=== PATIENT | male | born 1965 | race Caucasian/White ===

== ENCOUNTER 2024-11-12 10:59 | Observation (INO) | payer BC, SELFPAY ==
[2024-11-12] VITALS (13 sets, daily range): BP systolic 99–152; BP diastolic 72–109; BMI 32.8
[2024-11-12 01:32] LABS: Hematocrit 46.2 % (39.0-52.0); Hemoglobin 16.1 g/dL (13.0-18.0); Mean Corp Hgb Conc. 34.8 g/dL (33.0-37.0); Mean Corpuscular Volume 87.2 fL (80.0-94.0); Nucleated Red Blood Cells % 0 % (-); Platelet Count 253 10^3/uL (130-400); Red Cell Dist. Width 13.0 % (11.5-14.5)
[2024-11-12 02:05] LABS: Troponin I < 0.012 ng/ml
[2024-11-12 02:12] LABS: ALT (SGPT) 18 U/L (0-50); AST (SGOT) 26 U/L (17-59); Albumin 4.2 g/dl (3.5-5.0); Alkaline Phosphatase 95 U/L (38-126); Blood Urea Nitrogen 6 mg/dl (9-20); Calcium 9.3 mg/dl (8.4-10.2); Carbon Dioxide 24 mmol/L (22-30); Chloride 106 mmol/L (98-107); Estimated Creatinine Clearance > 125 ml/min; Glucose 102 mg/dl (70-99); Potassium 4.1 mmol/L (3.5-5.1); Sodium 137 mmol/L (135-145); Total Protein 6.8 g/dl (6.3-8.2); eGFR > 60.00
--- NOTE | 2024-11-12 02:43 | ED.GENMED ---
History of Present Illness
<ETTA Hanson - Last Filed: 11/12/24 17:48>
General
Chief Complaint: Chest Pain
Source: patient
Exam Limitations: none
Time Seen by Provider: 11/12/24 01:07
Nursing documentation reviewed up to this point in time: agreed with
History of Present Illness
History of Present Illness:
Patient is a 59-year-old male with past medical history of cardiac stent 2018 [facility], renal cancer with partial nephrectomy, A-fib years ago no longer on blood thinners hypertension high cholesterol presents to the ER for evaluation.
Patient reports he has been short of breath for the past several days. Today he he has had intermittent chest pains. He is on aspirin no other blood thinners. He complains of bilateral lower extremity swelling worse on the left. No prior
history of DVT PE. 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 He does report that he believes he was told he still has blockages. He currently is asymptomatic.
Past History
<ETTA Hanson - Last Filed: 11/12/24 17:48>
Past History
ED Past Medical History: CAD and HTN
ED Past Surgical History: Cardiac (stent) and Orthopedic
Social History
Tobacco: Non-smoker
Personal:
Living: with family
Employment: Employed
Phy Exam
<ETTA Hanson - Last Filed: 11/12/24 17:48>
General Physical Exam
General Presentation: no apparent distress
General age: appears stated age
General Skin: warm and dry
General Habitus: normal
General Mental: alert
Cardiovascular Exam
Cardiovascular Exam: regular rate/rhythm, no murmur and normal peripheral pulses
Pulmonary Exam
Pulmonary Exam: lungs clear and no respiratory distress
Neurological Exam
Neurological Exam: alert and oriented x3
Musculoskeletal Exam
Musculoskeletal Exam: full ROM and other (Mild swelling bilaterally left greater than right )
Skin Exam
Skin Exam: normal color and warm/dry
Psychiatric Exam
Psychiatric Exam: normal mood/affect
Scores
<ETTA Hanson - Last Filed: 11/12/24 17:48>
Heart Score for Chest Pain Patients
STEMI patient?: Not applicable
Course
<ETTA Hanson - Last Filed: 11/12/24 17:48>
Orders/Labs/Results
Orders:
Orders
11/12/24 00:37
ECG [Electrocardiogram (*1)] Urgent
Reason for Study: Chest Pain
EKG- Treatment ONCE
11/12/24 01:17
Complete Blood Count/With Diff Urgent
Comprehensive Metabolic Panel Urgent
NT-proBNP Urgent
Comment: ADD ON
Troponin I Urgent
11/12/24 02:54
Add On- LAB Urgent
Tests Added?: cardiac bnp
Chest [CR Chest - 2 Views ] Urgent
Comment:
Reason For Exam: sob
Venous Doppler Lwr Ext Bilat [US Periph Venous LOWER Ext Yan] Urgent
Comment:
Reason For Exam: swelling
11/12/24 02:55
EKG- Treatment ONCE
11/12/24 04:00
Electrocardiogram (*1) Urgent
Reason for Study: Chest Pain
11/12/24 04:20
DDimer [D-Dimer] Urgent
PTT Urgent
Comment: ADD ON
Prothrombin Time Urgent
Troponin I Urgent
11/12/24 05:24
CT Chest PE Study Urgent
Comment:
Reason For Exam: cp, elev ddimer
11/12/24 Breakfast
Cholesterol Lowering
At Your Request: Full Participation
Cholesterol Lowering: Sodium, 2 Gram
11/12/24 07:31
Heparin 7,800 units IV NOW STA
11/12/24 07:45
Heparin 38365 Units/250 ml 25,000 units in 250 ml IV PER PROTOCOL
Weight to be used for heparin protocol in kilograms (kg):: 97.8
Protocol:: DVT/PE
PTT Goal Range to be used:: PTT 73 to 111 seconds
Order type:: Initial
INITIAL Infusion Dose (UNITS/KG/hr) & then follow protocol:: 18 units/kg/hr
Infusion Dose in UNITS/hr & then follow protocol (UNITS/hr):: 1,800
INFUSION RATE in mL/hr & then follow protocol (mL/hr):: 18
For DVT/PE algorithm, re-bolus for low PTT?: Yes
PTT less than or equal to 64 seconds:: Re-bolus 80 units/kg (max 10,000units). Increase by 400 units/hr
(+ 4mL/hr)
PTT 64.1 to 72.9 seconds:: Re-bolus 40 units/kg (max 5,000 units). Increase by 200 units/hr
(+ 2mL/hr)
PTT 73 to 111 seconds:: Target Range. No change in rate.
PTT 111.1 to 130.9 seconds:: Decrease rate by 200 units/hr (- 2 mL/hr)
PTT 131 to 199.9 seconds:: HOLD for 1 hr. Then decrease by 300 units/hr (- 3mL/hr)
PTT greater than or equal to 200 seconds:: HOLD for 2 hrs & Notify Provider. Then decrease by 400 units/hr
(- 4mL/hr)
Lab follow-up:: Each change, PTT q6h until 2 consecutive are therapeutic. Then
PTT daily.
11/12/24 07:48
Add On- LAB Urgent
Tests Added?: PT INR / PTT
11/12/24 08:41
Heparin 44654 Units/250 ml 25,000 units in 250 ml .ROUTE .STK-MED
11/12/24 08:43
Heparin 7,800 units IV PRN PRN
11/12/24 08:44
Heparin 3,900 units IV PRN PRN
11/12/24 10:[address] Non Medication Order As Directed
Physician Order: NOTIFY MD WHEN MED REC DONE
Above order entered?: Yes
11/12/24 10:49
Admit/Transfer Patient As Directed
Co-Sign Provider:
Level of Care: Observation services
Assign to:: Telemetry
Physician / Group: fabiola melton
Diagnosis: Acute PE
Reason for Telemetry: Arrhythmia
Date to Stop Telemetry: 11/15/24
Time to Stop Telemetry: 11:00
PRN Pain Medication Management As Directed
May give lesser potent ordered pain med per pt: Yes
preference::
Protocol:: Medication orders for pain may be administered in a
manner that supports deferring to patient preference
when the pt is:
- Requesting an ordered lesser potent pain medication.
Least to most potent pain medications are defined
as: acetaminophen < NSAID < tramadol < opioids
(morphine, oxycodone, hydromorphone).
- Requesting a lesser dose of the same medication IF
ORDERED.
- Requesting a less intrusive route of administration
if both routes are prescribed by the provider (PO <
IV).
11/12/24 10:51
Code Status As Directed
Resuscitation Status: Full Code
11/12/24 12:39
Bisacodyl [Dulcolax] 10 mg RECTAL [id number] PRN
Docusate W/Senna [Senokot-S] 1 tablet PO BIDPRN PRN
Polyethylene Glycol Powder [Miralax] 17 grams PO DAILYPRN PRN
11/12/24 12:39
Activity As Directed
Activity Level: As Tolerated
Vital Signs As Directed
Frequency: Per unit guidelines
Pulse Ox/spot Check [RESP] Routine
Quantity: 1
11/12/24 15:[address] Non Medication Order As Directed
Physician Order: PTT 6 hours after initial start of Heparin infusion
Above order entered?: Yes
11/12/24 15:34
PTT Urgent
Comment: Obtain baseline before beginning heparin infusion if not already collected
Prothrombin Time Urgent
11/13/24 06:00
Complete Blood Count/With Diff IN AM
Comprehensive Metabolic Panel IN AM
11/15/24 11:00
DC Protocol for Telemetry ONCE
Abnormal Lab Results
11/12/24 11/12/24
01:17 04:20
WBC 12.6 H 10^3/uL
(4.8-10.8)
Absolute Neuts (auto) 7.5 H 10^3/uL
(1.4-6.5)
Absolute Lymphs (auto) 3.6 H 10^3/uL
(1.2-3.4)
Absolute Monos (auto) 1.3 H 10^3/uL
(0.1-0.6)
Monocytes % 10.3 H %
(1.7-9.3)
D-Dimer 1.28 H ug/mlFEU
(0.00-0.50)
BUN 6 L mg/dl
(9-20)
Glucose 102 H mg/dl
(70-99)
11/12/24 01:17
11/12/24 01:17
Vital Signs
Initial and Last Documented VS:
Initial Vital Signs
Temp Pulse Resp BP Pulse Ox
97.8 F 66 16 126/83 97
11/12/24 00:43 11/12/24 00:43 11/12/24 00:43 11/12/24 00:43 11/12/24 00:43
Last Documented Vital Signs
Temp Pulse Resp BP Pulse Ox
97.4 F 60 20 136/88 98
11/12/24 15:00 11/12/24 15:00 11/12/24 15:00 11/12/24 15:00 11/12/24 16:01
[employer] Library [employer] Program Director consulted with Physician
[employer] Program Director consulted with physician?: Yes
Name of Physician Consulted: Peng
<Benita Feng MD - Last Filed: 11/12/24 08:17>
Orders/Labs/Results
Orders:
Orders
11/12/24 00:37
ECG [Electrocardiogram (*1)] Urgent
Reason for Study: Chest Pain
EKG- Treatment ONCE
11/12/24 01:17
Complete Blood Count/With Diff Urgent
Comprehensive Metabolic Panel Urgent
NT-proBNP Urgent
Comment: ADD ON
Troponin I Urgent
11/12/24 02:54
Add On- LAB Urgent
Tests Added?: cardiac bnp
Chest [CR Chest - 2 Views ] Urgent
Comment:
Reason For Exam: sob
Venous Doppler Lwr Ext Bilat [US Periph Venous LOWER Ext Yan] Urgent
Comment:
Reason For Exam: swelling
11/12/24 02:55
EKG- Treatment ONCE
11/12/24 04:00
Electrocardiogram (*1) Urgent
Reason for Study: Chest Pain
11/12/24 04:20
DDimer [D-Dimer] Urgent
PTT Urgent
Comment: ADD ON
Prothrombin Time Urgent
Troponin I Urgent
11/12/24 05:24
CT Chest PE Study Urgent
Comment:
Reason For Exam: cp, elev ddimer
11/12/24 Breakfast
Cholesterol Lowering
At Your Request: Full Participation
Cholesterol Lowering: Sodium, 2 Gram
11/12/24 07:31
Heparin 7,800 units IV NOW STA
11/12/24 07:45
Heparin 09236 Units/250 ml 25,000 units in 250 ml IV PER PROTOCOL
Weight to be used for heparin protocol in kilograms (kg):: 97.8
Protocol:: DVT/PE
PTT Goal Range to be used:: PTT 73 to 111 seconds
Order type:: Initial
INITIAL Infusion Dose (UNITS/KG/hr) & then follow protocol:: 18 units/kg/hr
Infusion Dose in UNITS/hr & then follow protocol (UNITS/hr):: 1,800
INFUSION RATE in mL/hr & then follow protocol (mL/hr):: 18
For DVT/PE algorithm, re-bolus for low PTT?: Yes
PTT less than or equal to 64 seconds:: Re-bolus 80 units/kg (max 10,000units). Increase by 400 units/hr
(+ 4mL/hr)
PTT 64.1 to 72.9 seconds:: Re-bolus 40 units/kg (max 5,000 units). Increase by 200 units/hr
(+ 2mL/hr)
PTT 73 to 111 seconds:: Target Range. No change in rate.
PTT 111.1 to 130.9 seconds:: Decrease rate by 200 units/hr (- 2 mL/hr)
PTT 131 to 199.9 seconds:: HOLD for 1 hr. Then decrease by 300 units/hr (- 3mL/hr)
PTT greater than or equal to 200 seconds:: HOLD for 2 hrs & Notify Provider. Then decrease by 400 units/hr
(- 4mL/hr)
Lab follow-up:: Each change, PTT q6h until 2 consecutive are therapeutic. Then
PTT daily.
11/12/24 07:48
Add On- LAB Urgent
Tests Added?: PT INR / PTT
11/12/24 08:41
Heparin 91408 Units/250 ml 25,000 units in 250 ml .ROUTE .STK-MED
11/12/24 08:43
Heparin 7,800 units IV PRN PRN
11/12/24 08:44
Heparin 3,900 units IV PRN PRN
11/12/24 10:[address] Non Medication Order As Directed
Physician Order: NOTIFY MD WHEN MED REC DONE
Above order entered?: Yes
11/12/24 10:49
Admit/Transfer Patient As Directed
Co-Sign Provider:
Level of Care: Observation services
Assign to:: Telemetry
Physician / Group: fabiola melton
Diagnosis: Acute PE
Reason for Telemetry: Arrhythmia
Date to Stop Telemetry: 11/15/24
Time to Stop Telemetry: 11:00
PRN Pain Medication Management As Directed
May give lesser potent ordered pain med per pt: Yes
preference::
Protocol:: Medication orders for pain may be administered in a
manner that supports deferring to patient preference
when the pt is:
- Requesting an ordered lesser potent pain medication.
Least to most potent pain medications are defined
as: acetaminophen < NSAID < tramadol < opioids
(morphine, oxycodone, hydromorphone).
- Requesting a lesser dose of the same medication IF
ORDERED.
- Requesting a less intrusive route of administration
if both routes are prescribed by the provider (PO <
IV).
11/12/24 10:51
Code Status As Directed
Resuscitation Status: Full Code
11/12/24 12:39
Bisacodyl [Dulcolax] 10 mg RECTAL [id number] PRN
Docusate W/Senna [Senokot-S] 1 tablet PO BIDPRN PRN
Polyethylene Glycol Powder [Miralax] 17 grams PO DAILYPRN PRN
11/12/24 12:39
Activity As Directed
Activity Level: As Tolerated
Vital Signs As Directed
Frequency: Per unit guidelines
Pulse Ox/spot Check [RESP] Routine
Quantity: 1
11/12/24 15:[address] Non Medication Order As Directed
Physician Order: PTT 6 hours after initial start of Heparin infusion
Above order entered?: Yes
11/12/24 15:34
PTT Urgent
Comment: Obtain baseline before beginning heparin infusion if not already collected
Prothrombin Time Urgent
11/13/24 06:00
Complete Blood Count/With Diff IN AM
Comprehensive Metabolic Panel IN AM
11/15/24 11:00
DC Protocol for Telemetry ONCE
Abnormal Lab Results
11/12/24 11/12/24
01:17 04:20
WBC 12.6 H 10^3/uL
(4.8-10.8)
Absolute Neuts (auto) 7.5 H 10^3/uL
(1.4-6.5)
Absolute Lymphs (auto) 3.6 H 10^3/uL
(1.2-3.4)
Absolute Monos (auto) 1.3 H 10^3/uL
(0.1-0.6)
Monocytes % 10.3 H %
(1.7-9.3)
D-Dimer 1.28 H ug/mlFEU
(0.00-0.50)
BUN 6 L mg/dl
(9-20)
Glucose 102 H mg/dl
(70-99)
11/12/24 01:17
11/12/24 01:17
Vital Signs
Initial and Last Documented VS:
Initial Vital Signs
Temp Pulse Resp BP Pulse Ox
97.8 F 66 16 126/83 97
11/12/24 00:43 11/12/24 00:43 11/12/24 00:43 11/12/24 00:43 11/12/24 00:43
Last Documented Vital Signs
Temp Pulse Resp BP Pulse Ox
97.4 F 60 20 136/88 98
11/12/24 15:00 11/12/24 15:00 11/12/24 15:00 11/12/24 15:00 11/12/24 16:01
<ETTA Hanson - Last Filed: 11/12/24 17:48>
MDM/Problems Addressed
Differential Diagnosis Includes:
Not limited to ACS CHF less likely PE
MDM/Problems Addressed:
Initial cardiac troponin negative no acute findings on EKG patient will require second troponin repeat EKG along with additional testing including D-dimer venous Doppler ultrasounds and cardiac BNP/chest x-ray.
Patient at this time is stable with no chest pain or shortness of breath. Care of patient this time transferred to Dr. Khoury( [id number] )
<ETTA Hanson - Last Filed: 11/12/24 17:48>
*Pulse Oximetry
SaO2: 95
Oxygen Mode of Delivery: Room air
Patient hypoxic: no
*EKG
Interpreted by ED Provider?: Yes
*Critical Care Note
Total Time (30-74mins, 75-104mins- exclusive of procedures): Not Applicable
<Benita Feng MD - Last Filed: 11/12/24 08:17>
*Radiology
Radiology exam reviewed: radiology read reviewed
<Benita Feng MD - Last Filed: 11/12/24 08:17>
Update Note
Update Note:
7 AM: Got a call from [facility] that patient has right sided pulmonary embolism with no heart strain. Given that patient lives in the [facility] and has very little resources, I will admit him for anticoagulation
I personally evaluated the patient. He is resting comfortably. He is having no difficulty breathing. He is hemodynamically stable. Patient informed about CT results and is agreeable to staying in the hospital
ED Attending Note
<ETTA Hanson - Last Filed: 11/12/24 17:48>
-
Portions of this chart may have been created with voice recognition software.� Occasional wrong word or��sound alike� substitutions may have occurred due to the inherent limitations of voice recognition software.
Discharge Plan
Departure
Patient Disposition: Admit
Date of Disposition: 11/12/24
Time of Disposition: 07:30
Admit to: Med/Surg
Presentation/result/management discussed w/ accepting MD/DO: Hospitalist
Patient with high blood pressure during this ER visit?: Yes
Condition: Good
Covid-19: Not Applicable
Discharge Problem:
Acute pulmonary embolism
Interventions
Interventions:
*Risk Screen - Suicide Last Done: 11/12/24 00:43
*General Assessment Last Done: 11/12/24 00:43
*Neglect/Abuse Screening Last Done: 11/12/24 00:43
*ED- Fall Risk Assessment Last Done: 11/12/24 01:27
*ED COVID-19 Vaccine History Last Done: 11/12/24 01:28
*Nursing Disposition Last Done: 11/12/24 12:34
ED- Cardiac Assessment Last Done: 11/12/24 01:22
Discharge Date and Time
Discharge Date/Time: 11/12/24 12:34
[2024-11-12 04:56] LABS: D-Dimer 1.28 ug/mlFEU (0.00-0.50)
[2024-11-12 05:22] LABS: Troponin I < 0.012 ng/ml
[2024-11-12 08:01] LABS: INR 1.00; PT 13.5 Sec (11.4-14.6)
[2024-11-12 08:02] LABS: APTT 27.7 Sec (23.4-35.0)
[2024-11-12] MEDS: HEPARIN 7800 UNITS IV (08:42)
[2024-11-12] MEDS: HEPARIN 25000 UNITS/250 ML IV ×2 (08:44→23:53)
--- NOTE | 2024-11-12 10:54 | HPS.HSE ---
Family Physician
-
Family Physician: José Luis Bertrand
Chief Complaint
-
Chest pain and shortness of breath
History of Present Illness
59-year-old male with past medical history of CAD status post cardiac stent at [facility], renal cell cancer with left partial nephrectomy, paroxysmal atrial fibrillation not on blood thinner, hypertension, hyperlipidemia came to the hospital
with ongoing chest pain and shortness of breath. Per patient his symptoms started with shortness of breath from past few days. Denies any recent travel. Denies any fever/chills. Denies any nausea, vomiting, diarrhea, constipation. Per patient
he never has any history of DVT or PE. CT scan on admission consistent with pulmonary embolism.
Medical History
Past Medical History
Past Medical History: Reports Arrhythmia, Cancer (Renal cell), HTN and Hypercholesterolemia
Past Surgical History: Reports Cardiac (Stent), Orthopedic and Other (Partial nephrectomy)
Social History
Tobacco: Non-smoker
Family History
Family History: Not pertinent
Allergies / Home Medications
Allergies reflects when Allergies were last updated in [employer].
Home Medications with original date entered in [employer]
Allergy/Medication List:
Allergies
Allergy/AdvReac Type Severity Reaction Status Date / Time
No Known Allergies Allergy Verified 11/12/24 00:51
Home Medications
alprazolam 1 mg tablet 1 mg PO Q6 anxiety 04/28/16
aspirin 81 mg chewable tablet 81 mg PO DAILY 04/28/16
lisinopril 20 mg tablet 10 mg PO DAILY 04/28/16
metoprolol succinate 50 mg tablet,extended release 24 hr 50 mg PO BID 04/28/16
omeprazole 40 mg capsule,delayed release 40 mg PO DAILY 04/28/16
rosuvastatin 40 mg tablet (Crestor) 40 mg PO DAILY 04/28/16
diltiazem HCl 120 mg capsule,24 hr,extended release 120 mg PO DAILY 11/12/24
gabapentin 300 mg capsule 300 mg PO TID 11/12/24
paroxetine HCl 20 mg tablet 20 mg PO DAILY 11/12/24
tamsulosin 0.4 mg capsule (Flomax) 0.4 mg PO HS 11/12/24
Review of Systems
-
History Source: Patient
A 12 point ROS was completed and negative except as noted: Yes
Respiratory: Reports Trouble Breathing
Physical Exam
Vital Signs
Vital Signs
Temp Pulse Resp BP Pulse Ox
97.6 F 61 20 123/85 97
11/12/24 05:55 11/12/24 04:32 11/12/24 04:32 11/12/24 05:53 11/12/24 05:54
Physical Exam
General: Well Nourished and No Apparent Distress
HEENT: NormoCephalic, Anicteric, Moist mucous membranes and Atraumatic
Respiratory: Clear and Non Labored Respirations; No Wheezes
Cardiac: S1/S2 and Regular Rhythm
Breast: Deferred by me
GI: Soft, Non Tender, Non Distended and Normal Bowel Sounds
Rectal: Deferred by Provider
Genito-urinary: No Askew
Musculoskeletal: No Edema
Neuro: Awake, Alert, Oriented and AO x 3
Psych: Calm and Intact Judgment/Insight
Laboratory Results
-
11/12/24 01:17
11/12/24 01:17
Laboratory Results
PT 13.5 Sec (11.4-14.6) 11/12/24 04:20
INR 1.00 11/12/24 04:20
APTT 27.7 Sec (23.4-35.0) 11/12/24 04:20
Total Bilirubin 1.2 mg/dl (0.2-1.3) 11/12/24 01:17
AST 26 U/L (17-59) 11/12/24 01:17
ALT 18 U/L (0-50) 11/12/24 01:17
Alkaline Phosphatase 95 U/L (38-126) 11/12/24 01:17
Troponin I < 0.012 ng/ml 11/12/24 04:20
Data Reviewed
-
Diagnostic Radiology: Report Reviewed by me and Discussed with Patient
Lab Data: Labs Reviewed by me and Discussed with Patient
Impression/Plan
-
Chest pain and shortness of breath secondary to acute pulmonary embolism
Does have neuropathy which at times limits his ability to move around a whole lot.
Venous Doppler negative for DVT
CT chest with involvement of segmental and subsegmental pulmonary artery branches.
Continue with heparin drip for now with possible transition to p.o. tomorrow if remains stable
echo in am
will need hematology evaluation outpatient. Discussed with patient and he would like to go back to [place] where he used to go for his renal malignancy
history of hypertension
Hold lisinopril for now
Continue metoprolol
History of neuropathy
Continue with gabapentin
History of anxiety
Xanax as needed
History of renal cell cancer status post left partial nephrectomy
BPH
Continue Flomax
Hyperlipidemia
History of CAD status post stent
Continue with metoprolol
Reported history of paroxysmal atrial fibrillation however not on anticoagulation
Continue Cardizem, metoprolol
Monitor
DVTppx
IV heparin
Full code
I spent a total of 62 minutes with the patient or on the floor. More than 50% of this time involved counseling and coordination of care.
--- NOTE | 2024-11-12 14:44 | PTCARENOTE ---
Received pt from ER via stretcher, accompanied by ER staff. Pt AAO x3, GUTIERREZ well, able to ambulate to bed with cane- did not need assistance, denies weakness/dizziness. VSS. Placed on telemetry:NSR with PAC's. Pt has +1 edema BLE- refused leg
elevation on pillows. On room air- pulse ox 96%, pt denies SOB; reports 'very little bit' of Lt CP with deep inspiration; (-) cough/sputum. Abd obese, soft, to start chol lowering diet. Voided in BR upon arrival to unit. Heparin drip @ 1800
uints/hr (18 ml/hr) infusing via Lt. hand site without sxof infiltration. Resting in bed at present. Will continue to monitor.
[2024-11-12] MEDS: PROTONIX 40 MG PO (14:49)
[2024-11-12] MEDS: PAXIL 20 MG PO (14:49)
[2024-11-12] MEDS: FLOMAX 0.4 MG PO (14:49)
[2024-11-12] MEDS: CARDIZEM CD 120 MG PO (14:49)
[2024-11-12] MEDS: CRESTOR 40 MG PO (14:50)
[2024-11-12] MEDS: XANAX 1 MG PO ×2 (14:55→20:59)
--- NOTE | 2024-11-12 15:33 | CM ---
Reviewed the chart notes and spoke with the patient at the bedside. The patient is admitted under observation status. The observation letter was provided and explained. The patient had no questions with regards to the letter.
The patient at discharge will be moving into his brother's home's first floor apartment. No steps to enter. The patient reports no DME/VN/SNF in the past. The patient confirmed his pharmacy of choice is [facility].
continues to be available to patient/family and is monitoring medical plan for needs at discharge.
Plan: Discharge to home when medically stable. Per patient. he has been on anti-coags in past and insurance covers completely.
[2024-11-12 15:52] LABS: INR 1.14; PT 14.9 Sec (11.4-14.6)
[2024-11-12 15:54] LABS: APTT 96.4 Sec (23.4-35.0)
[2024-11-12] MEDS: NEURONTIN 300 MG PO ×2 (16:21→20:59)
[2024-11-12] MEDS: TOPROL XL 50 MG PO (20:46)
[2024-11-12 21:39] LABS: APTT 104.7 Sec (23.4-35.0)
[2024-11-13 03:32] VITALS: BP 123/73
[2024-11-13 07:25] VITALS: BP 138/78
[2024-11-13] MEDS: PROTONIX 40 MG PO (08:36)
[2024-11-13] MEDS: NEURONTIN 300 MG PO ×2 (08:36→16:10)
[2024-11-13] MEDS: CARDIZEM CD 120 MG PO (08:37)
[2024-11-13] MEDS: PAXIL 20 MG PO (08:37)
[2024-11-13] MEDS: LOW STRENGTH ASPIRIN 81 MG PO (08:37)
[2024-11-13] MEDS: FLOMAX 0.4 MG PO (08:37)
[2024-11-13] MEDS: TOPROL XL 50 MG PO (08:37)
[2024-11-13] MEDS: XANAX 1 MG PO (08:41)
[2024-11-13 09:53] LABS: Hematocrit 48.2 % (39.0-52.0); Hemoglobin 16.7 g/dL (13.0-18.0); Mean Corp Hgb Conc. 34.6 g/dL (33.0-37.0); Mean Corpuscular Volume 86.4 fL (80.0-94.0); Nucleated Red Blood Cells % 0 % (-); Platelet Count 248 10^3/uL (130-400); Red Cell Dist. Width 12.8 % (11.5-14.5)
[2024-11-13 10:07] LABS: APTT 71.7 Sec (23.4-35.0)
--- NOTE | 2024-11-13 10:17 | W.PN.HOSP.TC ---
Today's Communication/Plan
-
Discharge
Assessment / Plan
Assessment / Plan
Gen-AAOx3, NAD
HEENT-NC, AT, anicteric, clear oral mm
Neck-supple
CV-reg, no M, +S1/S2
Lungs-clear B/L
Abd-soft, NT, ND
Ext-no edema
Musculoskeletal-no cyanosis, clubbing
Skin-warm and dry
Neuro-grossly non-focal
Psych-calm, cooperative
Acute bilateral pulmonary emboli -involving right middle lobe, right lower lobe, left upper lobe involving segmental and subsegmental arterial branches. No evidence of central embolism. No evidence of right heart strain.
BNP and troponin normal. No indication for echocardiogram.
Venous Doppler ultrasound bilateral lower extremities negative.
Risk factors for VTE include obesity and sedentary lifestyle. Remote history of renal cell carcinoma, treated in 2018 with partial left nephrectomy.
Recommend that he gets up-to-date with cancer screening including colonoscopy. Follow-up closely as an outpatient with PCP.
Transition from IV heparin to Eliquis today and discharge.
CAD -with history of stents. Stable.
Patient denies history of paroxysmal atrial fibrillation for me.
Essential hypertension -stable.
Hyperlipidemia -on Crestor.
Chronic lumbar disc disease -with associated lower extremity neuropathy.
History of left renal cell cancer
Obesity due to excess calories
Full code
Dispo -medically stable for discharge.
Patient is houseless unfortunately. Offered social work assistance but he declined.
Follow-up with PCP next week.
32 minutes spent in discharge process.
Anticipated Discharge: Today
Subjective/Interval History
-
Date of Service: November 13, 2024
Patient seen and examined. No complaints.
Objective Data
-
Labs:
Laboratory Results
11/13/24
08:31
WBC 10.2
Hgb 16.7
Hct 48.2
Plt Count 248
APTT Pending
Sodium Pending
Potassium Pending
Chloride Pending
Carbon Dioxide Pending
BUN Pending
Creatinine Pending
Glucose Pending
Calcium Pending
Total Bilirubin Pending
AST Pending
ALT Pending
Alkaline Phosphatase Pending
Vital Signs:
Vital Signs
Temp Pulse Resp BP Pulse Ox
97.5 F 65 18 138/64 95
11/13/24 07:25 11/13/24 08:37 11/13/24 07:25 11/13/24 08:37 11/13/24 07:25
I&O
11/12/24 11/13/24 11/14/24
06:59 06:59 06:59
Intake Total 846 / 846
Output Total 1000 / 1000
Balance -154 / -154
Review of Systems
-
History Source: Patient
All other systems: Reviewed and negative
[2024-11-13 10:24] LABS: ALT (SGPT) 20 U/L (0-50); AST (SGOT) 26 U/L (17-59); Albumin 4.3 g/dl (3.5-5.0); Alkaline Phosphatase 109 U/L (38-126); Blood Urea Nitrogen 9 mg/dl (9-20); Calcium 9.0 mg/dl (8.4-10.2); Carbon Dioxide 24 mmol/L (22-30); Chloride 105 mmol/L (98-107); Estimated Creatinine Clearance > 125 ml/min; Glucose 95 mg/dl (70-99); Potassium 4.1 mmol/L (3.5-5.1); Sodium 137 mmol/L (135-145); Total Protein 6.7 g/dl (6.3-8.2); eGFR > 60.00
[2024-11-13] MEDS: ELIQUIS 10 MG PO ×2 (10:25→17:56)
--- NOTE | 2024-11-13 10:25 | W.DS.TRANS ---
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
-
Discharge Instructions:
Discharge Diagnosis/Procedures Bilateral pulmonary emboli
Diet Low Cholesterol,Low Fat
Activity As tolerated
Driving Restrictions As prior to admission
Bathing Restrictions None
Instructions:
Stand-Alone Forms:
Changes to Home Medications: No
Discharge Medications:
DC Medications w/original date entered in [facility]
alprazolam 1 mg tablet 1 mg PO Q6 anxiety 04/28/16
aspirin 81 mg chewable tablet 81 mg PO DAILY Blood Clot Prevention/Tx 04/28/16
lisinopril 20 mg tablet 10 mg PO DAILY Blood Pressure 04/28/16
metoprolol succinate 50 mg tablet,extended release 24 hr 50 mg PO BID Blood Pressure 04/28/16
omeprazole 40 mg capsule,delayed release 40 mg PO DAILY GERD 04/28/16
rosuvastatin 40 mg tablet (Crestor) 40 mg PO DAILY High Cholesterol 04/28/16
diltiazem HCl 120 mg capsule,24 hr,extended release 120 mg PO DAILY Heart Disease/Condition 11/12/24
gabapentin 300 mg capsule 300 mg PO TID NEUROPATHIC PAIN 11/12/24
paroxetine HCl 20 mg tablet 20 mg PO DAILY Mental Health/Anxiety 11/12/24
tamsulosin 0.4 mg capsule (Flomax) 0.4 mg PO HS Urinary Issue 11/12/24
apixaban 5 mg (74 tabs) tablets in a dose pack (Eliquis DVT-PE Treat 30D Start) See Rx Instructions PO .COMPLEX #74 ea 11/13/24
Home Medication Changes
Pending Results: No
--- NOTE | 2024-11-13 11:11 | CM ---
Pt is discharged. Stated he can drive his care. He is looking for a place to stay with friends. Provided [facility] and [facility] resources.
[2024-11-13 11:12] VITALS: BP 134/89
[2024-11-13] MEDS: CRESTOR 40 MG PO (12:26)
[2024-11-13 15:22] VITALS: BP 129/2
== END 2024-11-13 18:57 | disposition home or self-care (01) ==
LOC: 4 EAST ACU 10:59
PROVIDERS: Emergency Medicine; Nurse Practitioner; Student in an Organized Health Care Education/Training Program; ADMITTING PHYSICIAN Internal Medicine; ATTENDING PHYSICIAN Hospitalist; EMERGENCY PHYSICIAN Emergency Medicine; FAMILY PHYSICIAN Family Medicine Sports Medicine
DX: I26.99 Other pulmonary embolism without acute cor pulmonale (principal); I10 Essential (primary) hypertension; F41.9 Anxiety disorder, unspecified; I25.10 Atherosclerotic heart disease of native coronary artery without angina pectoris; I48.0 Paroxysmal atrial fibrillation; G57.90 Unspecified mononeuropathy of unspecified lower limb; M51.9 Unspecified thoracic, thoracolumbar and lumbosacral intervertebral disc disorder; E66.09 Other obesity due to excess calories; Z68.32 Body mass index [BMI] 32.0-32.9, adult; Z79.899 Other long term (current) drug therapy; Z85.528 Personal history of other malignant neoplasm of kidney; Z90.5 Acquired absence of kidney; Z95.5 Presence of coronary angioplasty implant and graft; I77.810 Thoracic aortic ectasia; J98.11 Atelectasis; N40.0 Benign prostatic hyperplasia without lower urinary tract symptoms; Z79.82 Long term (current) use of aspirin
CPT/HCPCS: 71046; 71275; 80053; 83880; 84484; 85025; 85379; 85610; 85730; 93005; 93970; 96374; 99285; G0378; Q9967

== ENCOUNTER → 2024-12-20 08:37 | Outpatient (REF) | payer OTHER, SELFPAY | LOC: RAD 08:37 | PROVIDERS: ATTENDING PHYSICIAN Internal Medicine Hematology & Oncology; FAMILY PHYSICIAN Family Medicine Sports Medicine | DX: I26.99 Other pulmonary embolism without acute cor pulmonale (principal); D68.69 Other thrombophilia; C64.2 Malignant neoplasm of left kidney, except renal pelvis | CPT/HCPCS: 74176 ==

== ENCOUNTER 2025-01-18 14:27 | Inpatient (IN) | payer OTHER, SELFPAY ==
[2025-01-18] VITALS (10 sets, daily range): BP systolic 87–106; BP diastolic 58–78; BMI 32.1
--- NOTE | 2025-01-18 12:25 | ED.GENMED ---
History of Present Illness
General
Chief Complaint: Cardiac Symptoms
Source: patient
Time Seen by Provider: 01/18/25 12:11
History of Present Illness
History of Present Illness:
59-year-old male presents to the emergency room after receiving a phone call from his cardiology office. Apparently he received a message from Dr. Rueda that he had significant abnormalities on a Holter monitor. This Holter monitor was placed by
the patient's primary care provider after the patient had a syncopal episode. Patient also has been experiencing some chest pain and shortness of breath. Patient states has been compliant with his medications. He can provide no further details.
Currently he feels at his baseline. Patient endorses smoking about 5 cigarettes a day. He denies alcohol use. He does use medical marijuana occasionally.
Past History
Past History
ED Past Medical History: CAD and HTN
ED Past Surgical History: Cardiac (stent) and Orthopedic
Social History
Tobacco: Non-smoker
Personal:
Living: with family
Employment: Employed
Phy Exam
Physical Exam
Physical Exam:
General: Awake, Alert, Oriented X3. No acute distress.
Vitals: unremarkable
Head: Atraumatic
Eyes: Pupils equal, EOMI
Throat: Airway intact, no exudates
Neck: Trachea midline
Lungs: Clear and equal b/l
Heart: Regular rate, no murmurs
Abd: Soft, Nontender, No pulsatile mass
Neuro: Nonfocal
Skin: Warm, dry, no rash
Extremities: pulses equal b/l, no edema
Course
Orders/Labs/Results
Orders:
Orders
01/18/25 11:24
Electrocardiogram (*1) Urgent
Reason for Study: Chest Pain
EKG- Treatment ONCE
01/18/25 12:30
Basic Metabolic Panel Urgent
Complete Blood Count/With Diff Urgent
Magnesium Urgent
Phos [Phosphorus] Urgent
TSH Reflex To Free T4 Urgent
Abnormal Lab Results
01/18/25
12:30
WBC 11.1 H 10^3/uL
(4.8-10.8)
Abs Immat Gran (auto) 0.1 H 10^3/uL
(0-0.05)
Absolute Neuts (auto) 6.8 H 10^3/uL
(1.4-6.5)
Absolute Monos (auto) 1.1 H 10^3/uL
(0.1-0.6)
Monocytes % 9.6 H %
(1.7-9.3)
Sodium 134 L mmol/L
(135-145)
01/18/25 12:30
01/18/25 12:30
Vital Signs
Initial and Last Documented VS:
Initial Vital Signs
Temp Pulse Resp BP Pulse Ox
98.2 F 59 16 104/61 99
01/18/25 11:31 01/18/25 11:31 01/18/25 11:31 01/18/25 11:31 01/18/25 11:31
Last Documented Vital Signs
Temp Pulse Resp BP Pulse Ox
98.2 F 52 16 90/66 93
01/18/25 11:31 01/18/25 12:38 01/18/25 12:38 01/18/25 12:38 01/18/25 12:38
MDM/Problems Addressed
Differential Diagnosis Includes:
Sick sinus syndrome, electrode abnormality, medication effect
MDM/Problems Addressed:
Patient sent to the emergency room after a Holter monitor revealed large number of sinus pauses with 1 lasting 10 seconds. Labs are unremarkable. Patient will likely need a pacemaker. Cardiology consult from Dr. Myles in progress. Patient
will require hospitalization for at least observation definitive management
*Pulse Oximetry
SaO2: 99
Oxygen Mode of Delivery: Room air
Patient hypoxic: no
*EKG
Interpreted by ED Provider?: Yes
Heart Rate: 53
Rate: bradycardiac
Rhythm: sinus
Colo: normal axis
Interval: first degree heart block
QRS Pattern: right bundle branch block
Ischemia: no ischemia
*Breeder Service Technician Interpretation
Rate: bradycardiac
Interpretation: abnormal
Rhythm: sinus
*Critical Care Note
Total Time (30-74mins, 75-104mins- exclusive of procedures): Not Applicable
Patient Management
Social determinants of health affecting care: Living situation
ED Attending Note
-
Portions of this chart may have been created with voice recognition software.� Occasional wrong word or��sound alike� substitutions may have occurred due to the inherent limitations of voice recognition software.
Discharge Plan
Departure
Prescriptions:
No Action
metoprolol succinate 50 MG tablet extended release 24 hr
50 mg PO BID
lisinopril 20 MG tablet
10 mg PO DAILY
omeprazole 40 MG capsule,delayed release(DR/EC)
40 mg PO DAILY
aspirin 81 MG tablet,chewable
81 mg PO DAILY
rosuvastatin [Crestor] 40 MG tablet
40 mg PO DAILY
alprazolam 1 MG tablet
1 mg PO Q6
tamsulosin [Flomax] 0.4 mg Capsule
0.4 mg PO HS
diltiazem HCl 120 mg Capsule,Extended Release 24 Hr
120 mg PO DAILY
paroxetine HCl 20 mg Tablet
20 mg PO DAILY
gabapentin 300 mg Capsule
300 mg PO TID
Eliquis DVT-PE Treat 30D Start 5 mg (74 tabs) tablets,dose pack
See Rx Instructions .ROUTE .COMPLEX Qty: 74 0RF
Rx Instructions:
orally per package directions
Referrals:
José Luis Bertrand DO [Family Provider, Family Practice]
Interventions
Interventions:
*Risk Screen - Suicide Last Done: 01/18/25 11:31
*General Assessment Last Done: 01/18/25 12:36
*Neglect/Abuse Screening Last Done: 01/18/25 11:31
*ED COVID-19 Vaccine History Last Done: 01/18/25 12:36
*ED Influenza Vaccine History Last Done: 01/18/25 12:36
[facility] Fall Risk Assessment Tool Last Done: 01/18/25 12:36
Discharge Date and Time
Print Language: ALBANIAN
[2025-01-18 12:39] LABS: Hematocrit 44.5 % (39.0-52.0); Hemoglobin 15.2 g/dL (13.0-18.0); Mean Corp Hgb Conc. 34.2 g/dL (33.0-37.0); Mean Corpuscular Volume 88.3 fL (80.0-94.0); Nucleated Red Blood Cells % 0 % (-); Platelet Count 243 10^3/uL (130-400); Red Cell Dist. Width 13.1 % (11.5-14.5)
[2025-01-18 13:03] LABS: Blood Urea Nitrogen 14 mg/dl (9-20); Calcium 9.0 mg/dl (8.4-10.2); Carbon Dioxide 30 mmol/L (22-30); Chloride 102 mmol/L (98-107); Estimated Creatinine Clearance 102 ml/min; Glucose 84 mg/dl (70-99); Magnesium 1.9 mg/dl (1.6-2.3); Potassium 4.5 mmol/L (3.5-5.1); Sodium 134 mmol/L (135-145); eGFR > 60.00
--- NOTE | 2025-01-18 13:44 | HPS.HSE ---
Family Physician
-
Family Physician: José Luis Bertrand
Chief Complaint
-
Sinus pauses
History of Present Illness
Patient is a pleasant 59 years old with history of coronary artery disease, hypertension, recent pulm embolism who came to the ER after receiving phone call from the cardiology office.
Patient was having syncopal episodes as outpatient and had Holter monitor as outpatient.
Cardiology called with sinus pauses on teletypesetter monitor.
Patient seen and examined at bedside, denies any chest pain, admits shortness of breath, no abdominal pain, no nausea, no vomiting,, patient admits some diarrhea.
Patient was seen by cardiology in the ER and plan for possible peacemaker, will hold Eliquis.
Medical History
Past Medical History
Past Medical History: Reports Arrhythmia, Cancer (Renal cell), HTN and Hypercholesterolemia
Additional Past Medical History:
Recent pulmonary embolism
Past Surgical History: Reports Cardiac (Stent), Orthopedic and Other (Partial nephrectomy)
Social History
Tobacco: Non-smoker
Family History
Family History: Not pertinent
Allergies / Home Medications
Allergies reflects when Allergies were last updated in [employer].
Home Medications with original date entered in [employer]
Allergy/Medication List:
Allergies
Allergy/AdvReac Type Severity Reaction Status Date / Time
No Known Allergies Allergy Verified 01/18/25 11:30
Home Medications
alprazolam 1 mg tablet 1 mg PO Q6 anxiety 04/28/16
aspirin 81 mg chewable tablet 81 mg PO DAILY Blood Clot Prevention/Tx 04/28/16
lisinopril 20 mg tablet 10 mg PO DAILY Blood Pressure 04/28/16
metoprolol succinate 50 mg tablet,extended release 24 hr 50 mg PO BID Blood Pressure 04/28/16
omeprazole 40 mg capsule,delayed release 40 mg PO DAILY GERD 04/28/16
rosuvastatin 40 mg tablet (Crestor) 40 mg PO DAILY High Cholesterol 03/14/17
diltiazem HCl 120 mg capsule,24 hr,extended release 120 mg PO DAILY Heart Disease/Condition 11/12/24
gabapentin 300 mg capsule 300 mg PO TID NEUROPATHIC PAIN 11/12/24
paroxetine HCl 20 mg tablet 20 mg PO DAILY Mental Health/Anxiety 11/12/24
tamsulosin 0.4 mg capsule (Flomax) 0.4 mg PO HS Urinary Issue 11/12/24
apixaban 5 mg (74 tabs) tablets in a dose pack (Eliquis DVT-PE Treat 30D Start) See Rx Instructions PO .COMPLEX #74 ea 11/13/24
Review of Systems
-
A 12 point ROS was completed and negative except as noted: Yes
Constitutional: Denies Fever, Weight Gain, Weight Loss, Fatigue or Sleep Disturbance
EENT: Denies Tearing, Sore Throat, Mouth Pain, Mouth Swelling or Runny Nose
Respiratory: Denies Cough, Hemoptysis or Trouble Breathing
Cardiac: Denies Chest Pain, Diaphoresis, Palpitations or Syncope
Abdomen/GI: Denies Abdominal Pain, Nausea, Vomiting, Diarrhea, Constipated, Bloody Stools or Black Stools
: Denies Dysuria, Frequency, Flank Pain, Incontinence, Difficulty Voiding, Urgency, Bleeding or Dark Urine
Musculoskeletal: Denies Joint Pain, Joint Swelling, Muscle Pain, Muscle Stiffness or Edema
Skin: Denies Itching or Rash
Neurological: Denies Dizzy, Headache, Weakness or Numbness
Endocrine: Denies Polyuria, Polydipsia or Temp Intolerance
Hematologic/Lymphatic: Denies Bleeding, Swollen Glands or Bruising
Psych: Reports Calm; Denies Depression, Anxiety or Panic Disorder
Physical Exam
Vital Signs
Vital Signs
Temp Pulse Resp BP Pulse Ox
98.2 F 52 16 90/66 93
01/18/25 11:31 01/18/25 12:38 01/18/25 12:38 01/18/25 12:38 01/18/25 12:38
Physical Exam
General: Well Developed, Well Nourished, No Apparent Distress, Comfortable and Good Appetite; No Pain, Chills or Sweats
HEENT: NormoCephalic, Moist mucous membranes, Atraumatic, Good Dentition, PERRLA, Nose Appears Normal and Ears Appear Normal
Respiratory: Clear
Cardiac: S1/S2, Regular Rhythm and Bradycardia
Breast: Deferred by me
GI: Soft, Non Tender, Non Distended and Normal Bowel Sounds
Genito-urinary: Deferred by me
Musculoskeletal: No Clubbing, No Cyanosis and No Edema
Skin: Warm; No Rash, Jaundice, Ulcers, Lesions or Decubitus Ulcers
Neuro: Awake, Alert, Oriented, AO x 3, No Motor Deficits, Nonfocal/grossly intact and Cranial Nerves Intact
Hematologic/Lymphatic: No Lymphadenopathy
Psych: Calm
Laboratory Results
-
01/18/25 12:30
01/18/25 12:30
Data Reviewed
-
Diagnostic Radiology: Report Reviewed by me
CT Scan: Report Reviewed by me
Medical Tests (Nuc Med, Echo, EKG etc): Report Reviewed by me
Lab Data: Labs Reviewed by me
Old Records: Reviewed
Impression/Plan
-
Impression:
59-year-old male with history of CAD with prior stents, essential hypertension, hyperlipidemia, chronic lumbar disc disease, left renal cell cancer, obesity, and recent pulmonary embolism on Eliquis, presenting to the ED after being notified of
significant Holter monitor abnormalities.Holter monitor was placed after a syncopal episode
Currently asymptomatic and feels at baseline Reports intermittent chest pain and shortness of breath, intermittent diarrhea
Seen by cardiology in the ER, hold Eliquis for possible pacemaker placement
Assessment/plan
Syncopal episodes with concern of pauses on teletypesetter monitor
Admit for cardiac monitoring
Obtain Holter report and review findings
Telemetry monitoring
Cardiology consulted, hold Eliquis, n.p.o. after midnight
Hold Cardizem/metoprolol
EP consult.
Coronary Artery Disease (history of stents)
Hold aspirin for now, continue statin
Mild hyponatremia.
Continue to monitor
Mild leukocytosis.
Possible reactive
Essential Hypertension
Currently hypotensive, hold metoprolol/Cardizem/lisinopril
Hyperlipidemia
Continue rosuvastatin (Crestor)
Chronic Lumbar Disc Disease with Neuropathy
Continue supportive care and pain management as needed
History of Left Renal Cell Cancer
No acute issues
Obesity
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
Social History
Smoking cessation counseling
Discuss marijuana use and cardiovascular risk
Code Status: Full Code
DVT Prophylaxis: Hold Eliquis
Diet: Cardiac diet, n.p.o. after midnight
Total time spent on today's encounter was 75 minutes which included time spent in counseling the patient/family regarding diagnosis and treatment plan as listed above, goals of care, and symptom management. Case was discussed with nursing staff,
specialists, and care coordinators/case management. All labs and imaging personally reviewed by me. Remainder the time spent in detailed review of previous records, lab data, imaging, and other medical provider documentation.
[2025-01-18] MEDS: NSS 500 IV (13:48)
--- NOTE | 2025-01-18 14:00 | CON.CAR ---
Addendum entered and electronically signed by Sarah Myles MD 01/18/25 15:27:
I saw and evaluated the patient, and I provided the substantive portion of the medical decision making.
I reviewed and agree with the note by [ ] and it accurately reflects our care.
I personally performed the medical decision making of the this encounter and my assessment and plan is below:
59-year-old gentleman sent in by Dr. Rueda's office after PCP reached out for abnormal Holter monitor. 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
RCA, 60% left circumflex, hypertension, right bundle branch block, hyperlipidemia, remote atrial fibrillation, recent PE now on Eliquis, and severe back disease who had a monitor placed after a syncopal episode. He reports he was just cooking and
passed out for no reason. No prodromal symptoms. No chest pain or shortness of breath. Holter monitor reviewed and showed multiple episodes of bradycardia with pauses, the longest pause 10.3 seconds after sinus node arrest. Currently he is
without complaint.
On exam he has a regular rate and rhythm with a normal S1 no murmurs rubs were appreciated lungs are clear to auscultation bilaterally no lower extremity edema.
Holter as above.
Echocardiogram today is normal.
TSH is normal.
Assessment:
Syncope likely in the setting of sinus node arrest. Up to 10.3-second pause seen on Holter monitor. Underlying conduction disease with a right bundle branch block seen. Additionally, needs to be on AV niko blocking agents given chronic CAD.
-Discussed with Dr. Lei, pacemaker is indicated.
-If able we will get a cardiac MRI to rule out sarcoidosis. However has no pretibial edema, will check chest x-ray to rule out lymphadenopathy, no abnormal septal motion on echo.
-Will hold his Eliquis the morning of the pacemaker.
-Monitor on telemetry
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 Continue statin, MIRIAN inhibitor, once able can resume beta-celena and possibly calcium channel celena. No need for aspirin given chronic Eliquis use
Hyperlipidemia: On statin
PE: In October of this year, continue Eliquis, holding in the morning tomorrow for pacemaker. Resume as soon as able.
Thank you for allowing us to persuade in his care will follow.
Original Note:
Consultation
Consultation Request
Date/Time Consultation Requested: 01/18/25 1300
Date/Time Consultation Performed: 01/18/25 1330
Requesting Provider: Dr. Rios
Performing Provider: Chante QUILES for Dr. Myles
Reason for Consultation: cardiac pause, bradycardia
Medical History
-
Chief Complaint: abnormal heart monitor results
History of Present Illness:
59 y/o male (patient of Dr. Golden Huertas- hasn't seen seen there since 2020 due to 'laziness' per patient) with CAD with hx LAD stenting (2015) with residual disease including chronic RCA occlusion, hypertension, hyperlipidemia, severe lumbar disc
disease, anxiety, neuropathy, renal carcinoma with hx surgery, smoking, PAF seen in setting of acute illness and not maintained on AC for this per OP cardiology note, but now on Eliquis due to PE 10/2024. 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 Holter monitor was ordered by PCP after an episode of syncope 2 weeks ago. He reports he was making a sandwich and woke up on the floor. There was no prodrome. He has had
no other syncope, including while wearing recent Holter monitor. Findings on monitor include pause up to 10.3 seconds and severe bradycardia HR as low as 28 BPM. He does report he had some chest discomfort, but noted it with inspiration. EKG shows
SB with RBBB.
Past Medical History
Past Medical History: Arrhythmias, CAD, HTN, Hypercholesterolemia, Psychiatric (anxiety) and Other (as above)
Social History
Tobacco: Smoker (1 pack per 4 days)
Alcohol: None
Drug: Marijuana (medical for pain)
Living: Alone (rents a room)
Family History
Family History: Reviewed & Not Pertinent
Allergies / Home Medications
Allergy/AdvReac Type Severity Reaction Status Date / Time
No Known Allergies Allergy Verified 01/18/25 11:30
�Medication �Instructions �Recorded �Confirmed �Type
alprazolam 1 mg tablet 1 mg PO Q6 anxiety 04/28/16 11/12/24 History
aspirin 81 mg chewable tablet 81 mg PO DAILY Blood Clot 04/28/16 11/12/24 History
Prevention/Tx
lisinopril 20 mg tablet 10 mg PO DAILY Blood Pressure 04/28/16 11/12/24 History
metoprolol succinate 50 mg 50 mg PO BID Blood Pressure 04/28/16 11/12/24 History
tablet,extended release 24 hr
omeprazole 40 mg capsule,delayed 40 mg PO DAILY GERD 04/28/16 11/12/24 History
release
rosuvastatin 40 mg tablet (Crestor) 40 mg PO DAILY High Cholesterol 04/28/16 11/12/24 History
diltiazem HCl 120 mg capsule,24 120 mg PO DAILY Heart 11/12/24 11/12/24 History
hr,extended release Disease/Condition
gabapentin 300 mg capsule 300 mg PO TID NEUROPATHIC PAIN 11/12/24 11/12/24 History
paroxetine HCl 20 mg tablet 20 mg PO DAILY Mental 11/12/24 11/12/24 History
Health/Anxiety
tamsulosin 0.4 mg capsule (Flomax) 0.4 mg PO HS Urinary Issue 11/12/24 11/12/24 History
apixaban 5 mg (74 tabs) tablets in See Rx Instructions PO .COMPLEX 11/13/24 Rx
a dose pack (EliquBubbleNoise DVT-PE Treat #74 ea
30D Start)
Review of Systems
-
History Source: Patient
All other systems: Negative unless noted
Cardiac: Chest Pain and Syncope
Musculoskeletal: Other (back pain, chronic )
Physical Exam
Vital Signs
Temp Pulse Resp BP Pulse Ox
98.2 F 52 16 90/66 93
01/18/25 11:31 01/18/25 12:38 01/18/25 12:38 01/18/25 12:38 01/18/25 12:38
Lab Results
01/18/25 12:30
01/18/25 12:30
Physical Exam
General: Well Developed, Well Nourished and No Apparent Distress
HEENT: Normocephalic and Anicteric
Respiratory: Clear and Non Labored Respirations
Cardiac: Regular Rhythm (SB)
Musculoskeletal: No Edema
Skin: Warm and Dry
Neuro: AO x 3
Psych: Calm
Impression / Plan
-
Severe bradycardia, pauses up to 10.3 seconds, recent syncope:
-needs PPM- we discussed this procedure - discussed with EP - plan for AM- NPO after MN
-hold diltiazem and metoprolol until after pacemaker
-echo now
-TSH WNL
-Hold Eliquis in AM prior to PPM- resume when safe afterward per EP- can get dose tonight
-getting fluids now as BP is soft
-he is currently feeling fine, no dizziness
CAD with hx LAD stenting 2016, chronic RCA occlusion:
-does not have anginal quality CP
-on ASA, statin, BB
Smoking:
-recommended cessation
Recent PE:
-on Eliquis for OAC- last dose this AM- confirmed with patient.
Hx PAF:
-per OP chart, only noted in setting of acute illness
-on OAC for PE
HTN:
-BP soft as above
-holding CCB/BB as above
Chronic back pain/disc disease
Hx renal cancer
Data Reviewed
-
EKG: Tracing Personally Visualized and interpreted (SB 53 BPM, RBBB)
Radiology: Report Reviewed by me (CXR 9/28/25: Small focus of increased parenchymal opacity involving the posterior and inferior aspect of the left lower lobe, most likely mild focal atelectasis. The rest of the lungs appear clear. The cardiac
silhouette, vascular markings, and mediastinal shadow appear normal.)
Medical Tests (Nuc Med, Echo etc): Other (echo ordered and pending )
Labs: Labs Reviewed by me
--- NOTE | 2025-01-18 16:30 | PTCARENOTE ---
Patient transferred to room 2250. AAOx3. Sinus orquidea on tele, heart rate 53, BP 102/67. Lungs clear, 98% on room air. IVF infusing. Plan of care discussed, call jain within reach.
[2025-01-18] MEDS: NSS 1000 IV (16:36)
[2025-01-18] MEDS: NEURONTIN 300 MG PO (16:37)
[2025-01-18] MEDS: ELIQUIS 5 MG PO (18:20)
--- NOTE | 2025-01-18 21:56 | PTCARENOTE ---
assumed care of patient at the change of shift. AAOx3. patient denies any pain. denies lightheadedness/dizziness. states 'im just tired.' SB on tele 40s-50s. bp on the lower side per patient but stable. IVF infusing per order. educated patient to
inform RN with any changes overnight. NPO at midnight for a PPM tomorrow.
[2025-01-18] MEDS: FLOMAX PO (22:30)
[2025-01-18] MEDS: NEURONTIN PO (22:30)
[2025-01-19] VITALS (12 sets, daily range): BP systolic 116–148; BP diastolic 76–96
[2025-01-19] MEDS: NSS 1000 IV (04:53)
[2025-01-19 05:12] LABS: Hematocrit 43.4 % (39.0-52.0); Hemoglobin 15.2 g/dL (13.0-18.0); Mean Corp Hgb Conc. 35.0 g/dL (33.0-37.0); Mean Corpuscular Volume 88.0 fL (80.0-94.0); Platelet Count 222 10^3/uL (130-400); Red Cell Dist. Width 12.8 % (11.5-14.5)
--- NOTE | 2025-01-19 05:19 | PTCARENOTE ---
NPO since midnight. IVF infusing. chest clipped and CHG wipes completed. new gown/leads. SB overnight 40s-50s. HR occasionally would dip into the 30s. pt asymptotic. pauses noted on tele review- longest 2.77 sec. bp stable.
[2025-01-19 05:37] LABS: Blood Urea Nitrogen 10 mg/dl (9-20); Calcium 8.7 mg/dl (8.4-10.2); Carbon Dioxide 28 mmol/L (22-30); Chloride 106 mmol/L (98-107); Estimated Creatinine Clearance > 125 ml/min; Glucose 94 mg/dl (70-99); Potassium 4.3 mmol/L (3.5-5.1); Sodium 135 mmol/L (135-145); eGFR > 60.00
[2025-01-19] MEDS: NEURONTIN 300 MG PO ×3 (07:48→21:39)
[2025-01-19] MEDS: CRESTOR 40 MG PO (07:48)
[2025-01-19] MEDS: PROTONIX 40 MG PO (07:52)
[2025-01-19] MEDS: PAXIL 20 MG PO (07:55)
--- NOTE | 2025-01-19 09:19 | W.PN.CD ---
Today's Communication / Plan
-
- dual chamber PPM today
Impression / Plan
-
Severe bradycardia, pauses up to 10.3 seconds, recent syncope:
-plan for PPM today
-hold diltiazem and metoprolol until after pacemaker
-echo - 01/18/25: Normal biventricular size and systolic function (EF 65%) with no significant valve disease.
-TSH WNL
-Hold Eliquis this AM prior to PPM
-getting fluids now as BP is soft
-he is currently feeling fine, no dizziness
-With syncope and sinus arrest, will need PPM. CMR is not available until next week. May need to get MRI after implant to rule out sarcoidosis (No evidence on ECHO).
CAD with hx LAD stenting 2016, chronic RCA occlusion:
-does not have anginal quality CP
-on ASA, statin, BB
Smoking:
-recommended cessation
Recent PE:
-on Eliquis for OAC- last dose this AM- confirmed with patient.
Hx PAF:
-per OP chart, only noted in setting of acute illness
-on OAC for PE
HTN:
-BP soft as above
-holding CCB/BB as above
Chronic back pain/disc disease
Hx renal cancer
Physical Exam
Vital Signs/Labs
Vital Signs
Temp Pulse Resp BP Pulse Ox
97.6 F 54 20 137/93 98
01/19/25 07:38 01/19/25 07:38 01/19/25 07:38 01/19/25 07:38 01/19/25 08:00
01/18/25 01/19/25 01/20/25
06:59 06:59 06:59
Actual Weight 95.6 kg
01/19/25 04:57
01/19/25 04:57
Magnesium 1.9 mg/dl (1.6-2.3) 01/18/25 12:30
01/19/25
04:57
[id number] Pept 1630
Physical Exam
Constitutional: No acute distress and Comfortable
EENT: Anicteric and Moist mucous membranes
Cardiovascular: Rhythm & rate is regular, Pedal edema is absent and JVD pressure is normal
Respiratory: Respiratory effort normal, Lungs clear to auscul. and Wheeze Absent
GI: Soft, Non tender and Normal bowel sounds
Neuro/Psych: Alert, Oriented and AO x 3
Other: Cardiac Device Site
Data Reviewed
-
Date of Service: January 19, 2025
Medical Decision Making: Reviewed Test Results, Test Interpretation and Review of Case with other Provider
EKG: Tracing Personally Visualized and interpreted
Echo: Tracing Personally Visualized and interpreted
X-Ray/CT/US/MRI/NUC/PET: Image Personally Visualized and interpreted
Labs: Labs Reviewed by me
Old Records: Reviewed
--- NOTE | 2025-01-19 10:42 | PTCARENOTE ---
Pt received this am with no c/o of any syncopal symptoms. Remains in SB - SR, rate in the 30's to 60's. Occasional short pauses noted. Pt oob to the BR, gait steady.
--- NOTE | 2025-01-19 11:52 | CM ---
spoke to pt in room, he is prev indep, lives in a house converted into apts, one story, 10 steps to enter. he has a cane to use if needed. he denies any dc planning needs. plan is for dc to home when medically stable.
[2025-01-19] MEDS: NSS IV (14:28)
--- NOTE | 2025-01-19 14:30 | ITS.CL.PACE ---
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
Pacemaker Implant
Procedure Report:
Permanent Pacemaker Placement:
Mr. Singleton is a 59 years old man with CAD, PAF, conduction disease with sick sinus syndrome with sinus arrest of over 10 seconds and hx of syncope is here for dual chamber pacemaker placement.
Indications:
Sick sinus syndrome
Date of the Procedure:
01/19/25
Pre-Operative Diagnosis: Sick sinus syndrome
Post-Operative Diagnosis: Sick sinus syndrome
Procedure Performed: Dual-chamber permanent pacemaker
Performing Physician:
Carly Lei MD
Anesthesia:
See anesthesia report.
Detailed Description of the Procedure:
The patient was identified using hospital identification and informed consent obtained for the procedure. The risks were explained to the patient and the family including, but not limited to: Bleeding, infection, arrhythmia, stroke,
vascular/cardiac/lung puncture, surgery, pacemaker dependency/device malfunction. All questions were answered.
A surgical pause was performed in accordance with hospital regulations. Anesthesia service provided sedation as reported separately. Antibiotics administered IV for risk of bacterial colonization. After obtaining informed and written consent, the
patient was brought to the electrophysiology laboratory.
The initial rhythm was sinus bradycardia
The procedure site was meticulously prepared with surgical scrub and allowed to dry with no pooling. Sterile draping was applied to cover the procedure site. The image intensifier was draped with sterile bag and positioned over the patient.
A surgical pause and time out was performed immediately prior to the procedure with review of her medical history, recent labs, allergies and medications with site of procedure identified and consent noted in the chart. Antibiotics pre operatively
given. All team members concurred.
The left infraclavicular region was prepped and draped in the usual sterile fashion. Local anesthesia was administered subcutaneously using 1% lidocaine / Bupivacaine. The left cephalic vein cutdown was performed with an incision at the
delto-pectoral groove, and vascular sheath was introduced for lead access.
A subcutaneous pocket was created with blunt dissection and use of electrocautery. Hemostasis was excellent.
The guide wire was advanced to the RA and was advanced to the RV. The preformed curved long hemostatic peel away HIS sheath was advanced into the RV cavity. A left bundle pacing wire was advanced into the sheath to the tip with ventricular signals
noted with unipolar manner. The cardiac anatomy was significant rotated.
The HIS location was identified under guidance of the fluoroscopy and the pacing wire signals. The sheath with the pacing lead was moved deeper into the RV cavity on the septum at a more inferior and distal to the HIS signals.
Once adequate signals were noted on the electrograms of the pacing lead in the sheath with W pattern signals on the RV septum, the lead was advanced and clockwise turns were done under fluoroscopic guidance.
The distal coil locking system was engaged at the [employer] pacing lead. The septum was engaged and the lead was paced intermittently after every 2-3 turns. The Impedance of the lead was measured that remained stable around 1000 Ohm. The ventricular
capture was monitored throughout and the captures gradually changed from RV pacing to non-selective pacing to LBB pacing with R wave on V1 morphology.
The long guiding sheath was cut and removed from the RV without change in lead position, impedance, sensing, or capture.
The bundle branch pacing was changed and readjustment lead to dislodgment of the RV implanted lead. The lead was again implanted into ventricular septum. The lead was sutured to the underlying pectoralis fascia with 2-0 Ti-Cron suture stitches.
Then the attention was given to atrial lead. Atrial active lead was placed in the RA and into the RAA. There were excellent impedance and thresholds.
The leads were attached to the pulse generator in standard configuration with acceptable sensing and threshold parameters. The pocket was irrigated with antibiotic solution; the pocket was inspected with no active bleeding noted. The device and the
leads were placed in the pocket.
Deep subcutaneous tissues were closed with three layers of 2-0 V loc sutures; and the dermis was reopposed using a running 4-0 Biosyn subcuticular suture.
A pressure dressing was applied. Sponge counts / sharp counts were appropriate.
Procedure End:
The procedure was tolerated well. Aquacel bandaged was applied.
Estimated Blood loss:
5 cc
Specimens Removed:
No cultures and no specimens were obtained. No intraoperative pathology was identified.
Urine output:
None
Packs / Drains/ Tubes:
None
Instrument / Sponge Count Correct:
Yes
Complications of the Procedure:
None
Condition of Patient at Time of Transfer:
Hemodynamically stable with no neurological or vascular compromise.
Device information:�
Generator: [employer]; Model: [id number]; Serial # [id number]
RA pacing lead: [employer]; Model: [id number]; Serial # [id number]
Measured data on the RV lead was sensing of 2.6 mV, impedance of 460 ohms and threshold of 1.0 V at 0.4ms. �
RV LBB pacing lead: [employer]; Model: [id number]; Serial # [id number]
Measured data on the RV lead was sensing of 8.2mV, impedance of 1000 ohms and threshold of 0.5 V at 0.4ms�
PROGRAMMING PARAMETERS:�
Reji parameter settings were DDDR 60-130 �
VIP - mode: On
Summary:
Successful implantation of Baca/[employer] MRI compatible dual chamber conduction system pacing permanent pacemaker.
Results/Recommendations:
-Please follow up CXR�
1. Please provide patient with adequate pain control�
Instructions to be given to patient:�
- Please follow up with [facility] at [address] [place] [address] ([phone]) to get your wound checked in 2 weeks of your discharge. Then follow with
- Do not wet incision site until after it is evaluated at cardiology clinic. No baths or showers until then. Sponge baths / showers are OK but dab dry the dressing after it is wet.�
- Allow 'steri strips' to fall off on their own�
- Do not lift left elbow above shoulder, particularly with sudden jerking movements, for 1 month�
- Do not lift anything weighing more than 5 pounds with the left arm for 1 month�
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
Carly Lei MD
Electrophysiology
[2025-01-19] MEDS: TORADOL 15 MG IV (15:37)
--- NOTE | 2025-01-19 16:00 | PTCARENOTE ---
Pt received post pacer at 1515. Left arm sling intact. Left chest pressure dressing dry and intact. Pt c/o of lower back pain. Medicated with toradol as ordered with relief.
[2025-01-19] MEDS: TYLENOL 650 MG PO (16:23)
--- NOTE | 2025-01-19 17:46 | W.PN.HOSP.TC ---
Today's Communication/Plan
-
Assessment / Plan
Assessment / Plan
NAD
Scleral Anicteric
MMM
No JVD
CTABL
Regular rhythm but bradycardic, S1/S2
Soft, NT, ND, BS+
Warm, Dry
AAOx3
Calm
Sinus pause
S/p PPM placement with EP
Monitor on telemetry
Hypertension
Continue antihypertensives
Hyperlipidemia
Continue Crestor
History of left renal cell cancer
No acute issues
Anticipated Discharge: > 48 hours
Subjective/Interval History
-
Date of Service: January 19, 2025
Seen and examined. No new complaints. No acute overnight events.
Objective Data
-
Vital Signs:
Vital Signs
Temp Pulse Resp BP Pulse Ox
98.1 F 55 20 139/89 97
01/19/25 15:51 01/19/25 11:45 01/19/25 15:51 01/19/25 11:19 01/19/25 15:51
I&O
01/18/25 01/19/25 01/20/25
06:59 06:59 06:59
Intake Total 1850 / 1850
Output Total 950 / 950 400 / 400
Balance 900 / 900 -400 / -400
[2025-01-19] MEDS: XANAX 1 MG PO (19:42)
--- NOTE | 2025-01-19 20:44 | PTCARENOTE ---
Rec'd pt at change of shift. Pt AAO*3, VSS, and Apaced on tele monitor. PT denies having any pain or discomfort but reports anxiety and requested Xanax. Xanax given as ordered. PT verbalizes understanding of L upper extremity restriction and now
resting with sling on L arm. L upper chest wall with pressure dressing CDI. Pt with call jain in reach. See MAR and flowchart for full pt care and assessment.
[2025-01-19] MEDS: FLOMAX 0.4 MG PO (21:39)
[2025-01-19] MEDS: ANCEF 5 IV (21:39)
[2025-01-20 01:59] VITALS: BP 139/95
[2025-01-20 02:20] VITALS: BMI 31.6
[2025-01-20] MEDS: TYLENOL 650 MG PO (02:23)
[2025-01-20 02:47] LABS: Hematocrit 42.9 % (39.0-52.0); Hemoglobin 15.4 g/dL (13.0-18.0); Mean Corp Hgb Conc. 35.9 g/dL (33.0-37.0); Mean Corpuscular Volume 84.4 fL (80.0-94.0); Platelet Count 226 10^3/uL (130-400); Red Cell Dist. Width 12.6 % (11.5-14.5)
[2025-01-20 02:58] LABS: Blood Urea Nitrogen 10 mg/dl (9-20); Calcium 8.8 mg/dl (8.4-10.2); Carbon Dioxide 25 mmol/L (22-30); Chloride 105 mmol/L (98-107); Estimated Creatinine Clearance > 125 ml/min; Glucose 83 mg/dl (70-99); Potassium 4.0 mmol/L (3.5-5.1); Sodium 134 mmol/L (135-145); eGFR > 60.00
[2025-01-20] MEDS: ANCEF 5 IV (06:10)
[2025-01-20 08:23] VITALS: BP 140/96
[2025-01-20] MEDS: PAXIL 20 MG PO (08:24)
[2025-01-20] MEDS: NEURONTIN 300 MG PO (08:24)
[2025-01-20] MEDS: CRESTOR 40 MG PO (08:24)
[2025-01-20] MEDS: XANAX 1 MG PO (08:24)
[2025-01-20] MEDS: PROTONIX 40 MG PO (08:24)
--- NOTE | 2025-01-20 08:47 | W.CARD.DEVCH ---
Cardiac Device Check
-
Device: Pacemaker
Head Teacher: [employer]
The patient's device was interrogated with assistance of the device practice representative followed by a complete physician review. The device had normal function. No abnormalities seen.
--- NOTE | 2025-01-20 08:47 | W.PN.CD ---
Today's Communication / Plan
-
- resume Eliquis, diltiazem and metoprolol
- Stable for discharge.
Impression / Plan
-
Severe bradycardia, pauses up to 10.3 seconds, recent syncope:
-s/p PPM - 01/19/25 - Baca
- RV lead impedance has improved from 1000 ohm to 600s as expected. Normal threshold.
- Mostly A paced rhythm noted.
- resume diltiazem and metoprolol today
-echo - 01/18/25: Normal biventricular size and systolic function (EF 65%) with no significant valve disease.
-TSH WNL
-Resume Eliquis this AM
CAD with hx LAD stenting 2016, chronic RCA occlusion:
-does not have anginal quality CP
-on ASA, statin, BB
Smoking:
-recommended cessation
Recent PE:
-on Eliquis for OAC- last dose this AM- confirmed with patient.
Hx PAF:
-per OP chart, only noted in setting of acute illness
-on OAC for PE
HTN:
-BP soft as above
-holding CCB/BB as above
Chronic back pain/disc disease
Hx renal cancer
Physical Exam
Vital Signs/Labs
Vital Signs
Temp Pulse Resp BP Pulse Ox
97.3 F 63 18 139/95 98
01/20/25 08:25 01/20/25 08:25 01/20/25 08:25 01/20/25 01:59 01/20/25 08:25
01/19/25 01/20/25 01/21/25
06:59 06:59 06:59
Actual Weight 95.6 kg 94.3 kg
01/20/25 02:15
01/20/25 02:15
Magnesium 1.9 mg/dl (1.6-2.3) 01/18/25 12:30
01/19/25
04:57
Tmj-A-Uiwmhmbfivp Pept 1630
Physical Exam
Constitutional: No acute distress and Comfortable
EENT: Anicteric and Moist mucous membranes
Cardiovascular: Rhythm & rate is regular, Pedal edema is absent and JVD pressure is normal
Respiratory: Respiratory effort normal, Lungs clear to auscul. and Wheeze Absent
GI: Soft, Non tender and Normal bowel sounds
Neuro/Psych: Alert, Oriented and Motor deficits absent
Other: Cardiac Device Site (Pressure dressing removed. No hematoma. No fluctuations. )
Data Reviewed
-
Date of Service: January 20, 2025
Medical Decision Making: Reviewed Test Results, Test Interpretation and Review of Case with other Provider
EKG: Tracing Personally Visualized and interpreted (Mostly A paced. Occasional [place] atrial beats are noted. )
Echo: Report Reviewed by me
X-Ray/CT/US/MRI/NUC/PET: Image Personally Visualized and interpreted
Labs: Labs Reviewed by me
Old Records: Reviewed
--- NOTE | 2025-01-20 08:56 | PTCARENOTE ---
assessment as documented. No complaints except mild anxiety -given ativan.
--- NOTE | 2025-01-20 13:47 | W.DCSUMMARY ---
Discharge Summary
Discharge Data
Date of Admission: 01/18/25
Date of Discharge: 01/20/25
-
Pending Results: No
Hospital Course
59 years old with history of coronary artery disease, hypertension, recent pulm embolism
Had a syncopal episode as an outpatient. Holter monitor picked up sinus pauses. Cardiology called and recommended to present to the hospital. Continue to have ongoing sinus pauses. AV niko blocking agents were discontinued. Was evaluated by
electrophysiology and pacemaker was placed.
2d echo
SUMMARY
1. Normal biventricular size and systolic function without regional wall motion abnormality.
2. No significant valve disease.
3. Mildly dilated ascending aorta at 3.8 cm.
4. No prior study available for comparison.
Permanent Pacemaker
Device information:�
Generator: Baca[employer]; Model: [id number]; Serial # [id number]
RA pacing lead: [employer]; Model: [id number]; Serial # [id number]
Measured data on the RV lead was sensing of 2.6 mV, impedance of 460 ohms and threshold of 1.0 V at 0.4ms. �
RV LBB pacing lead: [employer]; Model: [id number]; Serial # [id number]
Measured data on the RV lead was sensing of 8.2mV, impedance of 1000 ohms and threshold of 0.5 V at 0.4ms�
PROGRAMMING PARAMETERS:�
Reji parameter settings were DDDR 60-130 �
VIP - mode: On
Seen and examined on day of discharge which was 01/20/2025. No new complaints. No acute overnight events.
NAD
Scleral Anicteric
MMM
No JVD
Left anterior chest wall old for pacemaker insertion site bandage has some dried blood small amount
CTABL
RRR, S1/S2
Soft, NT, ND, BS+
Warm, Dry
AAOx3
Calm
More than 30 minutes spent in discharge including
Final examination of the patient
Summarizing hospital stay
Instructions for continuing care to all relevant caregivers
Preparation of discharge records, prescriptions, and referral forms
Total time spent (in minutes): 33mins
Discharge Plan
-
Patient Disposition: Home (Routine Discharge)
Discharge Diagnosis/Procedures: Pacemaker implant
Diet: Low Cholesterol
Driving Restrictions: No driving for 1 week
Bathing Restrictions: OK to Shower
Activity Restrictions/Additional Instructions:
Had a syncopal episode as an outpatient. Holter monitor picked up sinus pauses. Cardiology called and recommended to present to the hospital. Continue to have ongoing sinus pauses. AV niko blocking agents were discontinued. Was evaluated by
electrophysiology and pacemaker was placed.
2d echo
SUMMARY
1. Normal biventricular size and systolic function without regional wall motion abnormality.
2. No significant valve disease.
3. Mildly dilated ascending aorta at 3.8 cm.
4. No prior study available for comparison.
Permanent Pacemaker
Device information:�
Generator: Baca[employer]; Model: [id number]; Serial # [id number]
RA pacing lead: [employer]; Model: [id number]; Serial # [id number]
Measured data on the RV lead was sensing of 2.6 mV, impedance of 460 ohms and threshold of 1.0 V at 0.4ms. �
RV LBB pacing lead: Baca[employer]; Model: [id number]; Serial # [id number]
Measured data on the RV lead was sensing of 8.2mV, impedance of 1000 ohms and threshold of 0.5 V at 0.4ms�
PROGRAMMING PARAMETERS:�
Reji parameter settings were DDDR 60-130 �
VIP - mode: On
Stand Alone Forms: DC Inst - Implanted Device
Referrals:
Carly Lei MD [Active, Cardiology] - 01/29/25 1:00 pm
Referral Note: Incision check appointment
José Luis Bertrand DO [Family Provider, Family Practice]
Additional Discharge Medication Instructions: Resume eliquis starting tonight
Prescriptions:
New
Chloraseptic Sore Throat 6-10 mg Lozenge
1 macie PO Q4HPRN PRN (Reason: sore throat) Qty: 10 0RF
Continued
metoprolol succinate 50 MG tablet extended release 24 hr
50 mg PO BID
omeprazole 40 MG capsule,delayed release(DR/EC)
40 mg PO DAILY
aspirin 81 MG tablet,chewable
81 mg PO DAILY
rosuvastatin [Crestor] 40 MG tablet
40 mg PO DAILY
alprazolam 1 MG tablet
1 mg PO BID
diltiazem HCl 120 mg Capsule,Extended Release 24 Hr
120 mg PO DAILY
paroxetine HCl 20 mg Tablet
20 mg PO DAILY
gabapentin 300 mg Capsule
300 mg PO TID
alprazolam [Xanax] 1 mg Tablet
1 mg PO BIDPRN PRN (Reason: AXNIETY)
oxycodone-acetaminophen 10-325 mg Tablet
1 tab PO BIDPRN PRN (Reason: SEVERE PAIN)
tamsulosin 0.4 mg Capsule
0.4 mg PO DAILY
lisinopril 10 mg Tablet
10 mg PO DAILY
Medical Marijuana
2 cap PO DAILYPRN PRN (Reason: ANXIETY)
Eliquis 5 mg Tablet
5 mg PO BID
Discharge Orders:
Discharge Patient (As Directed); Ordered 01/20/25
Ordered By: Roland Llanes
Care Plan Goals
Care Plan Goals:
Problem: Readiness for enhanced knowledge related to diagnosis and treatment plan
Goal: Understand your diagnosis and treatment plan needs, including medications if applicable.
Instructions: Know your diagnosis, underlying causes and treatment plan options, including medications if applicable. Consult with your health care team to learn about your diagnosis and treatment plan, including medications if applicable.
Discharge Date and Time
Discharge Date/Time: 01/20/25 12:11
Print Language: BELARUSIAN
== END 2025-01-20 12:11 | disposition home or self-care (01) | DRG 243 ==
LOC: IVU 14:27
PROVIDERS: Internal Medicine Cardiovascular Disease; Nurse Practitioner; ADMITTING PHYSICIAN General Practice; ATTENDING PHYSICIAN Hospitalist; CONSULT PHYSICIAN Internal Medicine Cardiovascular Disease; EMERGENCY PHYSICIAN Emergency Medicine; FAMILY PHYSICIAN Family Medicine Sports Medicine
PROC: 0JH606Z Insertion of Pacemaker, Dual Chamber into Chest Subcutaneous Tissue and Fascia, Open Approach (ICD-10-PCS; 2025-01-19)
PROC: 02H63JZ Insertion of Pacemaker Lead into Right Atrium, Percutaneous Approach (ICD-10-PCS; 2025-01-19)
PROC: 02HK3JZ Insertion of Pacemaker Lead into Right Ventricle, Percutaneous Approach (ICD-10-PCS; 2025-01-19)
DX: I49.5 Sick sinus syndrome (principal); E87.1 Hypo-osmolality and hyponatremia; R55 Syncope and collapse; I10 Essential (primary) hypertension; I25.10 Atherosclerotic heart disease of native coronary artery without angina pectoris; D72.829 Elevated white blood cell count, unspecified; I95.9 Hypotension, unspecified; G62.9 Polyneuropathy, unspecified; E66.9 Obesity, unspecified; M51.369 Other intervertebral disc degeneration, lumbar region without mention of lumbar back pain or lower extremity pain; E78.00 Pure hypercholesterolemia, unspecified; I44.0 Atrioventricular block, first degree; I45.10 Unspecified right bundle-branch block; F17.210 Nicotine dependence, cigarettes, uncomplicated; F41.9 Anxiety disorder, unspecified; I48.0 Paroxysmal atrial fibrillation; I77.819 Aortic ectasia, unspecified site; G89.29 Other chronic pain; M54.9 Dorsalgia, unspecified; Z79.01 Long term (current) use of anticoagulants; Z86.711 Personal history of pulmonary embolism; Z95.5 Presence of coronary angioplasty implant and graft; Z85.528 Personal history of other malignant neoplasm of kidney; Z90.5 Acquired absence of kidney; Z79.82 Long term (current) use of aspirin; Z79.899 Other long term (current) drug therapy; Z71.6 Tobacco abuse counseling
CPT/HCPCS: 33208; 71045; 71046; 80048; 83735; 83880; 84100; 84443; 85025; 85027; 93005; 93306; 96360; 99285; 99406; C1785; C1898